=== PATIENT | male | born 1990 | race African-American/Black ===

== ENCOUNTER → 2019-08-29 | Outpatient (CLI) | payer OTHER ==
--- NOTE | 2019-08-29 11:42 | REP ---
LEFT WRIST, FOUR VIEWS: There is no evidence of an acute fracture, dislocation or intrinsic bone disease. The joint spaces are unremarkable. IMPRESSION: No fracture or dislocation. Electronically Signed by Enio Cruz MD 09/02/2019 03:25 P
--- NOTE | 2019-08-29 11:43 | REP ---
LEFT HAND, FOUR VIEWS: There is no evidence of an acute fracture, dislocation or intrinsic bone disease. The joint spaces are unremarkable. IMPRESSION: No fracture or dislocation. Electronically Signed by Enio Cruz MD 09/02/2019 03:25 P
== END ==
LOC: M RAD 08:56
PROVIDERS: ATTEND Surgery
DX: M25.541 Pain in joints of right hand (principal); M25.531 Pain in right wrist